=== PATIENT | female | born 1995 | race Caucasian/White ===

== ENCOUNTER 2018-08-10 22:16 | Emergency (ER) | payer BC ==
[2018-08-10 23:26] VITALS: BP 115/75
== END 2018-08-10 23:26 | disposition home or self-care (01) ==
LOC: ED 22:16
DX: J45.901 Unspecified asthma with (acute) exacerbation (principal); F41.9 Anxiety disorder, unspecified; Z88.6 Allergy status to analgesic agent; Z91.013 Allergy to seafood
CPT/HCPCS: J7512; J7620; Q0092